=== PATIENT | female | born 1945 | race Caucasian/White ===

== ENCOUNTER 2020-12-21 19:05 | Emergency (ER) | payer SELFPAY ==
[2020-12-21 20:17] LABS: HEMOGLOBIN 13.7 gm/dl (12.3-15.3); RED BLOOD COUNT 4.23 M/UL (4.00-5.10)
[2020-12-21 20:40] LABS: BUN/CREATININE RATIO 18 (0-10)
== END 2020-12-21 21:00 | disposition home or self-care (01) ==
LOC: ER1 19:05
PROVIDERS: Preventive Medicine Occupational Medicine
DX: I63.9 Cerebral infarction, unspecified (principal); I10 Essential (primary) hypertension; E11.9 Type 2 diabetes mellitus without complications
CPT/HCPCS: 70450; 70496; 70498; 80053; 82962; 85025; 85610; 85730; 99285; Q9967